=== PATIENT | male | born 1980 | race Caucasian/White ===

== ENCOUNTER 2023-12-17 23:28 | Emergency (ER) | payer OTHER ==
[~2023-12-17] VITALS: Ht 172.7 cm; Wt 79.4 kg
[2023-12-18 00:36] VITALS: BP 117/68; TEMP 98; O2SAT 99
== END 2023-12-18 02:33 | disposition home or self-care (01) ==
LOC: ER 23:32
DX: S39.012A Strain of muscle, fascia and tendon of lower back, initial encounter (principal); Z60.2 Problems related to living alone; Z88.2 Allergy status to sulfonamides; X50.1XXA Overexertion from prolonged static or awkward postures, initial encounter; Y93.89 Activity, other specified; Y92.89 Other specified places as the place of occurrence of the external cause; Y99.8 Other external cause status